=== PATIENT | male | born 1945 | race Caucasian/White ===

== ENCOUNTER 2017-08-09 20:50 | Emergency (ER) | payer OTHER | END 2017-08-09 22:52 | disposition home or self-care (01) | LOC: D.ER 20:50 | DX: S91.011A Laceration without foreign body, right ankle, initial encounter (principal); S51.011A Laceration without foreign body of right elbow, initial encounter; W26.9XXA Contact with unspecified sharp object(s), initial encounter; Y93.89 Activity, other specified; Y92.019 Unspecified place in single-family (private) house as the place of occurrence of the external cause ==